=== PATIENT | female | born 1985 | race Caucasian/White ===

== ENCOUNTER 2017-09-25 22:02 | Emergency (ER) | payer BC ==
[2017-09-25] MEDS ORDERED: HYDROcodone/Acetaminophen 10/325 mg Tablet ONE (22:23)
== END 2017-09-25 22:31 | disposition home or self-care (01) ==
LOC: SCSER 22:02
DX: R05 Cough (principal); I10 Essential (primary) hypertension; Z79.899 Other long term (current) drug therapy
CPT/HCPCS: 99283

== ENCOUNTER 2020-12-12 07:30 | Emergency (ER) | payer BC | END 2020-12-12 08:26 | disposition home or self-care (01) | LOC: ERS 07:30 | DX: L42 Pityriasis rosea (principal); I10 Essential (primary) hypertension | CPT/HCPCS: 99282 ==

== ENCOUNTER 2022-09-25 22:15 | Observation (INO) | payer BC ==
[2022-09-25 23:03] LABS: #Basophils 0.1 thou/uL (0.0-0.2); #Eosinphils 0.1 thou/uL (0.0-0.7); #Lymphocytes 4.3 thou/uL (1.20-3.40); #Monocytes 0.6 thou/uL (0.11-0.59); #Neutrophils 5.9 thou/uL (1.40-6.50); %Basophils 0.5 % (0.0-1.0); %Eosinophils 0.7 % (0.0-10.0); %Lymphocytes 39.1 % (21.0-51.0); %Monocytes 5.3 % (0.0-10.0); %Neutrophils 54.4 % (42.0-75.0); Hemoglobin 14.7 g/dL (12.0-16.0); Mean Corpuscular HGB CONC 34.4 g/dL (32.0-36.0); Mean Corpuscular Hemoglobin 30.6 pg (27.0-31.0); Mean Corpuscular Volume 88.8 fl (78.0-98.0); Mean Platelet Volume 7.9 fL (7.4-10.4); Platelet Count 296 10x3/uL (130-400); RBC Distribution Width 12.1 % (11.5-14.5); White Blood Cell (WBC) Count 10.9 10x3/uL (4.8-10.8)
[2022-09-25 23:20] LABS: ALT (SGPT) 24 U/L (8-55); AST (SGOT) 15 U/L (5-34); Albumin 4.4 g/dL (3.5-5.0); Alkaline Phosphatase 51 U/L (40-110); Anion Gap 15 mmol/L (10-20); BUN (Urea Nitrogen) 11 mg/dL (7.0-18.7); Bilirubin, Total 0.6 mg/dL (0.2-1.2); Calc. Creatinine Clearance 0 mL/min (70-130); Calcium 9.2 mg/dL (7.8-10.44); Carbon Dioxide 24 mmol/L (22-29); Chloride 102 mmol/L (98-107); Estimated GFR 78; Globulin 3.2 g/dL (2.4-3.5); Glucose 155 mg/dL (70-105); Potassium 4.2 mmol/L (3.5-5.1); Protein, Total 7.6 g/dL (6.0-8.3); Sodium 137 mmol/L (136-145)
[2022-09-25 23:42] LABS: CKMB 0.6 ng/mL (0-6.6)
[2022-09-25 23:49] LABS: BHCG - Serum Negative (NEGATIVE); Pregs Control Background? CLEAR/WHITE (CLR/WHITE); Pregs Control Bar Appear? YES (CONTROL BAR)
[2022-09-26] MEDS ORDERED: Ondansetron PF 4 MG/2 ML Vial ONE ×2 (00:22→18:56)
[2022-09-26] MEDS ORDERED: Aspirin Chewable 81 MG TAB ONE (00:22)
[2022-09-26] MEDS ORDERED: Morphine 4 MG/ML VIAL ONE (00:22)
[2022-09-26 02:03] LABS: Bacteria/HPF 1+ HPF (None Seen); Bilirubin Negative (Negative); Blood, Urine 1+ (Negative); Clarity Turbid (Clear); Glucose, Urine (Dipstick) Normal (Negative); Ketone, Urine Negative (Negative); Leukocyte 500 Leu/uL (Negative); Nitrite Negative (Negative); Protein, Urine (Dipstick) Negative (Neg-Trace); RBC/HPF 21-50 HPF (0-3); Specific Gravity, Urine 1.028 (1.002-1.036); Urobilinogen Normal mg/dL (Less than 2); WBC/HPF Greater than 50 HPF (0-3); pH, Urine 5.5 (5.0-9.0)
[2022-09-26] MEDS ORDERED: cefTRIAXone\\ROCEPHIN 1 GM VIAL ONE (02:16)
[2022-09-26] MEDS ORDERED: traZODone HCl 50 MG TAB PO PRN (02:33)
[2022-09-26] MEDS ORDERED: Morphine 4 MG/ML VIAL SLOW IVP PRN (02:36)
[2022-09-26] MEDS ORDERED: Spironolactone 25 MG TAB PO SCH (02:45)
[2022-09-26 03:03] LABS: #Basophils 0.1 thou/uL (0.0-0.2); #Eosinphils 0.1 thou/uL (0.0-0.7); #Monocytes 0.5 thou/uL (0.11-0.59); #Neutrophils 5.8 thou/uL (1.40-6.50); %Basophils 0.8 % (0.0-1.0); %Eosinophils 0.8 % (0.0-10.0); %Lymphocytes 38.3 % (21.0-51.0); %Monocytes 4.9 % (0.0-10.0); %Neutrophils 55.2 % (42.0-75.0); Mean Corpuscular HGB CONC 35.3 g/dL (32.0-36.0); Mean Corpuscular Hemoglobin 31.3 pg (27.0-31.0); Mean Corpuscular Volume 88.8 fl (78.0-98.0); Mean Platelet Volume 7.9 fL (7.4-10.4); Platelet Count 276 10x3/uL (130-400); RBC Distribution Width 12.1 % (11.5-14.5); Red Blood Cell (RBC) Count 4.79 mill/uL (4.20-5.40); White Blood Cell (WBC) Count 10.5 10x3/uL (4.8-10.8)
[2022-09-26 03:27] LABS: Troponin I 0.035 ng/mL (< 0.028)
[2022-09-26 04:11] LABS: Chloride 103 mmol/L (98-107); Potassium 4.1 mmol/L (3.5-5.1); Sodium 136 mmol/L (136-145)
[2022-09-26 04:12] LABS: Calcium 9.1 mg/dL (7.8-10.44); Glucose 88 mg/dL (70-105)
[2022-09-26 04:14] LABS: Anion Gap 18 mmol/L (10-20); Carbon Dioxide 19 mmol/L (22-29)
[2022-09-26 04:16] LABS: BUN (Urea Nitrogen) 10 mg/dL (7.0-18.7); Calc. Creatinine Clearance 0 mL/min (70-130); Estimated GFR 93
[2022-09-26 06:00] LABS: Troponin I 0.033 ng/mL (< 0.028)
[2022-09-26] MEDS ORDERED: Carvedilol 3.125 MG TAB PO SCH (08:00)
[2022-09-26] MEDS ORDERED: Losartan 25 MG TAB PO SCH (09:00)
[2022-09-26] MEDS ORDERED: buPROPion 75 MG TAB PO SCH (09:00)
[2022-09-26] MEDS ORDERED: Amlodipine 5 MG TAB PO SCH (09:00)
[2022-09-26] MEDS ORDERED: Dextrose 50% Abboject 50 ML SYRINGE SLOW IVP PRN (10:01)
[2022-09-26] MEDS ORDERED: Dextrose 5% in Water 1,000 ML IV PRN (10:01)
[2022-09-26] MEDS ORDERED: HumaLOG 300 UNITS/3 ML VIAL SC PRN (10:01)
[2022-09-26 10:52] LABS: ALT (SGPT) 22 U/L (8-55); AST (SGOT) 14 U/L (5-34); Albumin 3.8 g/dL (3.5-5.0); Alkaline Phosphatase 45 U/L (40-110); Bilirubin, Direct 0.1 mg/dL (0.1-0.3); Bilirubin, Total 0.3 mg/dL (0.2-1.2)
[2022-09-26] MEDS ORDERED: Iopamidol-370 76% 500 ML 1 ML ONE (12:15)
[2022-09-26 13:09] LABS: SARS-CoV-2 NAA Rapid Test Not Detected (NotDetected)
[2022-09-26] MEDS ORDERED: Lactated Ringer's 1,000 ML IV SCH ×3 (13:30→14:45)
[2022-09-26] MEDS ORDERED: Ketorolac Tromethamine 30 MG/ML VIAL IVP PRN (13:52)
[2022-09-26] MEDS ORDERED: Scopolamine 1.5 mg/72 hour Patch TD SCH (14:00)
[2022-09-26] MEDS ORDERED: Ketorolac Tromethamine 30 MG/ML VIAL IVP SCH (14:00)
[2022-09-26 14:24] VITALS: BMI 49.0
[2022-09-26] MEDS ORDERED: Dexamethasone 20 MG/5 ML VIAL ONE (18:56)
[2022-09-26] MEDS ORDERED: Rocuronium Bromide 10 MG/ML (10ML VIAL) ONE (18:56)
[2022-09-26] MEDS ORDERED: Lidocaine 1% PF 5 ML VIAL ONE (18:56)
[2022-09-26] MEDS ORDERED: PROPOFOL 200 MG/20 ML VIAL ONE (18:56)
[2022-09-26] MEDS ORDERED: fentaNYL PF 100 MCG/2 ML SYRINGE ONE (18:59)
[2022-09-26] MEDS ORDERED: traMADol HCl 50 MG TAB PO PRN (19:03)
[2022-09-26] MEDS ORDERED: Ibuprofen 600 MG TAB PO PRN (19:03)
[2022-09-26] MEDS ORDERED: Bupivacaine/Epinephrine 0.25% 30 ML VIAL ONE (19:13)
[2022-09-26] MEDS ORDERED: SUGAMMADEX SODIUM 200 MG/2 ML VIAL ONE (19:15)
[2022-09-26] MEDS ORDERED: Acetaminophen 500 MG TAB PO SCH (19:15)
[2022-09-26] MEDS ORDERED: Promethazine HCl 25 MG/ML VIAL IM PRN (20:18)
[2022-09-26] MEDS ORDERED: Ondansetron HCl/PF 4 MG/2 ML Vial IVP PRN (20:18)
[2022-09-26] MEDS ORDERED: Labetalol HCl 100 MG/20 ML VIAL SLOW IVP PRN (20:19)
[2022-09-26] MEDS ORDERED: Fentanyl 100 MCG/2 ML VIAL ONE (20:33)
[2022-09-26] MEDS ORDERED: Carvedilol 25 MG TAB PO SCH (21:00)
[2022-09-26] MEDS ORDERED: buPROPion HCl 100 MG TAB PO SCH (21:00)
[2022-09-26] MEDS ORDERED: traZODone HCl 50 MG TAB PO SCH (21:00)
[2022-09-26] MEDS ORDERED: Acetaminophen 500 MG TAB PO PRN (23:00)
[2022-09-27] MEDS ORDERED: cefTRIAXone\\ROCEPHIN 2 GM in Sodium Chloride 0.9% 100 ML IVPB SCH (02:00)
[2022-09-27 03:29] VITALS: BP 144/61; TEMP 97.7
[2022-09-27] MEDS ORDERED: FLU VACC QS2022-23(6MOS UP)/PF 60 MCG/0.5 ML SYRINGE IM ONE (09:00)
[2022-09-27] MEDS ORDERED: Amlodipine 5 MG TAB PO SCH (09:00)
[2022-09-27] MEDS ORDERED: Spironolactone 25 MG TAB PO SCH (09:00)
[2022-09-27] MEDS ORDERED: Losartan 25 MG TAB PO SCH ×2 (09:00)
[2022-10-03] MEDS ORDERED: Non-Formulary Item 1 EACH (Semaglutide [Ozempic] 1 MG/0.75 ML Pen.Injctr) SC SCH (09:00)
== END 2022-09-27 06:50 | disposition home or self-care (01) ==
LOC: ERS 22:15 → ERHOLD 09-26 02:28 → 2SW 09-26 14:05
PROVIDERS: ADMIT Internal Medicine; ATTEND Internal Medicine
PROC: 0FT44ZZ Resection of Gallbladder, Percutaneous Endoscopic Approach (ICD-10-PCS; principal; 2022-09-26)
DX: K80.10 Calculus of gallbladder with chronic cholecystitis without obstruction (principal); R07.89 Other chest pain; N39.0 Urinary tract infection, site not specified; I10 Essential (primary) hypertension; Z79.85 Long-term (current) use of injectable non-insulin antidiabetic drugs; Z79.899 Other long term (current) drug therapy; Z88.8 Allergy status to other drugs, medicaments and biological substances; Z20.822 Contact with and (suspected) exposure to COVID-19
CPT/HCPCS: 36415; 71046; 71275; 74177; 76705; 80048; 80053; 80076; 81003; 81015; 82553; 83690; 83880; 84145; 84484; 84703; 85025; 88304; 93005; 96374; 96375; C1889; G0378; J0696; J1100; J1650; J1885; J1956; J2270; J2405; J2704; J3010; J3490; J7120; Q9967; U0002

== ENCOUNTER 2022-10-02 08:41 | Emergency (ER) | payer BC ==
[2022-10-02 09:45] LABS: Pregs Control Background? CLEAR/WHITE (CLR/WHITE); Pregs Control Bar Appear? YES (CONTROL BAR)
[2022-10-02 09:46] LABS: BHCG - Serum Negative (NEGATIVE)
[2022-10-02] MEDS ORDERED: Ondansetron PF 4 MG/2 ML Vial ONE (09:48)
[2022-10-02] MEDS ORDERED: Morphine 4 MG/ML VIAL ONE (09:48)
[2022-10-02 09:51] LABS: #Eosinphils 0.1 thou/uL (0.0-0.7); #Lymphocytes 2.8 thou/uL (1.20-3.40); #Monocytes 0.6 thou/uL (0.11-0.59); #Neutrophils 7.1 thou/uL (1.40-6.50); %Basophils 0.1 % (0.0-1.0); %Eosinophils 0.7 % (0.0-10.0); %Lymphocytes 26.6 % (21.0-51.0); %Monocytes 5.7 % (0.0-10.0); %Neutrophils 66.9 % (42.0-75.0); Hemoglobin 14.5 g/dL (12.0-16.0); Mean Corpuscular Hemoglobin 30.3 pg (27.0-31.0); Mean Platelet Volume 8.1 fL (7.4-10.4); Platelet Count 298 10x3/uL (130-400); RBC Distribution Width 12.2 % (11.5-14.5); Red Blood Cell (RBC) Count 4.78 mill/uL (4.20-5.40); White Blood Cell (WBC) Count 10.6 10x3/uL (4.8-10.8)
[2022-10-02 09:52] LABS: PTT 26.7 sec (22.9-36.1); Prothrombin Time 13.3 sec (12.0-14.7)
[2022-10-02 10:05] LABS: ALT (SGPT) 29 U/L (8-55); AST (SGOT) 28 U/L (5-34); Albumin 4.1 g/dL (3.5-5.0); Alkaline Phosphatase 51 U/L (40-110); Anion Gap 15 mmol/L (10-20); BUN (Urea Nitrogen) 11 mg/dL (7.0-18.7); Bilirubin, Total 0.8 mg/dL (0.2-1.2); Calc. Creatinine Clearance 0 mL/min (70-130); Calcium 9.4 mg/dL (7.8-10.44); Carbon Dioxide 22 mmol/L (22-29); Chloride 103 mmol/L (98-107); Estimated GFR 83; Globulin 3.4 g/dL (2.4-3.5); Glucose 106 mg/dL (70-105); Lipase 28 U/L (8-78); Potassium 4.4 mmol/L (3.5-5.1); Protein, Total 7.5 g/dL (6.0-8.3); Sodium 136 mmol/L (136-145)
[2022-10-02 10:14] LABS: Bacteria/HPF 1+ HPF (None Seen); Bilirubin Negative (Negative); Blood, Urine 2+ (Negative); Clarity Hazy (Clear); Glucose, Urine (Dipstick) Normal (Negative); Ketone, Urine Negative (Negative); Leukocyte 500 Leu/uL (Negative); Nitrite Negative (Negative); Protein, Urine (Dipstick) 10 mg/dL (Neg-Trace); RBC/HPF 21-50 HPF (0-3); Specific Gravity, Urine 1.018 (1.002-1.036); Urobilinogen Normal mg/dL (Less than 2); WBC/HPF 21-50 HPF (0-3); pH, Urine 7.5 (5.0-9.0)
[2022-10-02] MEDS ORDERED: Lidocaine Viscous Sol 2% 15 ml UD Cup ONE (12:28)
[2022-10-02] MEDS ORDERED: Mag-Al 1200 mg/1200 mg/30 ML UDCUP ONE (12:28)
[2022-10-02] MEDS ORDERED: Famotidine/PF 20 mg/2ml Vial ONE (12:28)
[2022-10-02] MEDS ORDERED: Iopamidol-370 76% 500 ML 1 ML ONE (17:17)
== END 2022-10-02 13:26 | disposition home or self-care (01) ==
LOC: ERS 08:41
DX: R10.11 Right upper quadrant pain (principal); N39.0 Urinary tract infection, site not specified; I10 Essential (primary) hypertension
CPT/HCPCS: 36415; 74177; 80053; 81003; 81015; 83605; 83690; 84484; 84703; 85025; 85610; 85730; 87040; 87086; 93005; 94760; 96374; 96375; J2270; J2405; Q9967; S0028

== ENCOUNTER 2023-06-06 09:05 | Outpatient (CLI) | payer BC | END 2023-06-06 09:06 | disposition home or self-care (01) | LOC: ULT 09:05 | PROVIDERS: ATTEND Internal Medicine | DX: R10.31 Right lower quadrant pain (principal); E28.2 Polycystic ovarian syndrome; K76.0 Fatty (change of) liver, not elsewhere classified; R93.89 Abnormal findings on diagnostic imaging of other specified body structures; Z90.49 Acquired absence of other specified parts of digestive tract; Z97.5 Presence of (intrauterine) contraceptive device | CPT/HCPCS: 76700; 76856 ==